=== PATIENT | female | born 1990 | race Caucasian/White ===

== ENCOUNTER → 2021-11-29 | Outpatient (CLI) | payer OTHER ==
[2021-11-29 19:19] LABS: HEMOGLOBIN 10.7 gm/dl (12.3-15.3); RED BLOOD COUNT 4.64 M/UL (4.00-5.10); WHITE BLOOD COUNT 4.4 K/UL (4.5-11.0)
[2021-11-29 19:39] LABS: BUN/CREATININE RATIO 27 (0-10)
== END ==
LOC: LAB 18:12
DX: Z13.228 Encounter for screening for other metabolic disorders (principal); Z11.59 Encounter for screening for other viral diseases; Z11.4 Encounter for screening for human immunodeficiency virus [HIV]; R68.89 Other general symptoms and signs; R94.6 Abnormal results of thyroid function studies; E78.00 Pure hypercholesterolemia, unspecified; E55.9 Vitamin D deficiency, unspecified; D51.9 Vitamin B12 deficiency anemia, unspecified
CPT/HCPCS: 80053; 80061; 82607; 82728; 83540; 83735; 84439; 84443; 85025

== ENCOUNTER → 2021-11-30 | Outpatient (CLI) | payer OTHER ==
[2021-12-01 07:09] LABS: HEPATITIS B SURF AB QUANT 100.4 mIU/mL (Immunity>9.9); VITAMIN D, 25-HYDROXY 29.3 ng/mL (30.0-100.0)
[2021-12-01 08:12] LABS: HIV AB/P24 AG SCREEN Non Reactive (Non Reactive); THYROXINE (T4) 8.8 ug/dL (4.5-12.0)
[2021-12-03 16:10] LABS: RPR Reactive (Non Reactive); TREPONEMA PALLIDUM ANTIBODIES Reactive (Non Reactive)
[2021-12-04 15:09] LABS: HBSAG SCREEN Negative (Negative); HCV AB >11.0 (0.0-0.9); HEP A AB, IGM Negative (Negative); HEP B CORE AB, IGM Negative (Negative); HEPATITIS C QUANTITATION HCV Not Detected IU/mL (.)
[2021-12-04 21:11] LABS: QUANTIFERON MITOGEN VALUE >10.00 IU/mL (.); QUANTIFERON NIL VALUE 0.11 IU/mL (.); QUANTIFERON TB2 AG VALUE 0.08 IU/mL (.); QUANTIFERON-TB GOLD PLUS Negative (Negative)
== END ==
LOC: LAB 11:43
DX: Z11.59 Encounter for screening for other viral diseases (principal); Z11.4 Encounter for screening for human immunodeficiency virus [HIV]; R68.89 Other general symptoms and signs; Z13.228 Encounter for screening for other metabolic disorders; R94.6 Abnormal results of thyroid function studies; E78.00 Pure hypercholesterolemia, unspecified; E55.9 Vitamin D deficiency, unspecified; D51.9 Vitamin B12 deficiency anemia, unspecified
CPT/HCPCS: 36415; 80074; 82248; 83036; 84436; 84481; 86317; 86592; 86704; 87389